=== PATIENT | female | born 1945 | race African-American/Black ===

== ENCOUNTER → 2017-07-24 | Outpatient (CLI) | payer MEDICARE, BC | END | disposition home or self-care (01) | LOC: ULS 13:00 | DX: N63 Unspecified lump in breast (principal) ==

== ENCOUNTER 2017-09-10 13:45 | Outpatient (RCR) | payer MEDICARE, BC | END 2017-09-26 | disposition home or self-care (01) | LOC: PTY 13:45 | DX: G20 Parkinson's disease (principal) | CPT/HCPCS: 97110; 97530; G8978; G8979 ==

== ENCOUNTER 2017-09-12 11:43 | Outpatient (CLI) | payer MEDICARE, BC ==
--- NOTE | 2017-09-12 13:34 | Diagnostic Imaging Report ---
Indication: 9-year-old female with altered mental status Parkinson's disease Technique: sagittal T1 fast spin echo, axial T1 and T2 FLAIR, axial T2 FS, T2* GRE, axial diffusion weighted images, post contrast axial and coronal T1 FLAIR images. ADC and exponential ADC maps generated. Note that due to patient's condition, she was unable to fit into the head coil, necessitating visualization of the overhead coil Comparison: None Findings: There is some image degradation due to motion artifact. No abnormal areas of restricted diffusion to suggest acute infarction. No acute hemorrhage or edema. No mass effect nor midline shift. No abnormal contrast enhancement. There is age-related enlargement of the ventricles and extra axial CSF spaces. There is periventricular deep white matter high T2 signal consistent with chronic ischemic change. Visualized orbits and sinuses are unremarkable. The vascular flow-voids are preserved.. Impression: Somewhat limited exam, as described Chronic and age-related changes, as described Negative for acute intracranial bleed or mass effect
== END 2017-09-12 13:43 | disposition home or self-care (01) ==
LOC: MRI 11:43
DX: R41.82 Altered mental status, unspecified (principal); G20 Parkinson's disease
CPT/HCPCS: 70553; A9585

== ENCOUNTER 2017-10-24 13:00 | Outpatient (RCR) | payer MEDICARE, BC | END 2017-10-27 | disposition home or self-care (01) | LOC: PTY 13:00 | DX: G20 Parkinson's disease (principal) ==

== ENCOUNTER 2017-11-13 16:00 | Outpatient (RCR) | payer MEDICARE, BC | END 2017-11-27 | disposition home or self-care (01) | LOC: PTY 16:00 | DX: G20 Parkinson's disease (principal); M24.569 Contracture, unspecified knee ==